=== PATIENT | male | born 1985 | race African-American/Black ===

== ENCOUNTER 2016-12-31 16:09 | Inpatient (IN) | payer OTHER ==
--- NOTE | 2016-12-31 22:17 | HP ---
CIWA Score - CIWA Score Nausea/Vomitin Muscle Tremors: 3 Anxiety: 3 Agitation: 3 Paroxysmal Sweats: 2 Orientation: 0-Oriented Tacttile Disturbances: 2-Mild Itch/Numbness/Burn Auditory Disturbances: 2-Mild Harshness/Frighten Visual Disturbances: 2-Mild Sensitivity Headache: 2-Mild CIWA-Ar Total Score: 22 Admission ROS BHS - HPI Chief Complaint: i need help to stop drinking alcohol Allergies/Adverse Reactions: Allergies Allergy/AdvReac Type Severity Reaction Status Date / Time No Known Allergies Allergy Verified 12/31/16 22:14 History of Present Illness: this 31 years old male with alcohol dependence,withdrawal symptom,last detox [facility] syncope alcohol related no significant period of sobriety Exam Limitations: No Limitations - Ebola screening Have you traveled outside of the country in the last 21 days: No Have you had contact with anyone from an Ebola affected area: No Do you have a fever: No - Review of Systems Constitutional: Loss of Appetite, Malaise, Night Sweats, Changes in sleep EENT: reports: Nose Congestion Respiratory: reports: No Symptoms reported Cardiac: reports: No Symptoms Reported GI: reports: Nausea, Vomiting, Abdominal cramping : reports: No Symptoms Reported Musculoskeletal: reports: Back Pain, Muscle Pain Integumentary: reports: Dryness Neuro: reports: Headache, Tremors Endocrine: reports: No Symptoms Reported Hematology: reports: No Symptoms Reported Psychiatric: reports: No Sypmtoms Reported Patient History - Patient Medical History Hx Anemia: No Hx Asthma: No Hx Chronic Obstructive Pulmonary Disease (COPD): No Hx Cancer: No Hx Cardiac Disorders: No Hx Congestive Heart Failure: No Hx Hypertension: No Hx Hypercholesterolemia: No Hx Pacemaker: No HX Cerebrovascular Accident: No Hx Seizures: No Hx Dementia: No Hx Diabetes: No Hx Gastrointestinal Disorders: No Hx Liver Disease: No Hx Genitourinary Disorders: No Hx Renal Disease (ESRD): No Hx Thyroid Disease: No Hx Human Immunodeficiency Virus (HIV): No (2016 last negative) Hx Hepatitis C: No Hx Depression: No Hx Suicide Attempt: No Hx Bipolar Disorder: No Hx Schizophrenia: No Other Medical History: no suicidal,no homicidal - Patient Surgical History Past Surgical History: No - PPD History Previous Implant?: Yes Documented Results: Negative w/o proof Implanted On Prior [facility] Admission?: No PPD to be Administered?: Yes - Smoking Cessation Smoking history: Never smoked Have you smoked in the past 12 months: No Cigars Per Day: 0 Hx Chewing Tobacco Use: No - Substance & Tx. History Hx Alcohol Use: Yes Hx Substance Use Treatment: Yes ([facility] in 11/02) - Substances Abused Alcohol Route: Oral Frequency: Daily Amount used: 3pints of vodka/2 of 40 ozs of beer Age of first use: 20 Date of Last Use: 12/31/16 Family Disease History - Family Disease History Family Disease History: Other: Father (alcohol) Admission Physical Exam [facility] - Physical General Appearance: Yes: Moderate Distress, Alcohol on Breath, Tremorous, Irritable, Sweating, Anxious HEENTM: Yes: Normal ENT Inspection, DEBBIE, Pharynx Normal Respiratory: Yes: Lungs Clear Neck: Yes: Within Normal Limits Breast: Yes: Within Normal Limits Cardiology: Yes: Within Normal Limits, Regular Rhythm, Regular Rate, S1, S2 Abdominal: Yes: Normal Bowel Sounds, Non Tender, Flat, Soft Genitourinary: Yes: Within Normal Limits Back: Yes: Muscle Spasm Musculoskeletal: Yes: Back pain, Muscle Pain Extremities: Yes: Tremors 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: 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
[2016-12-31 22:28] VITALS: BMI 28.6
[2016-12-31] MEDS ORDERED: IBUPROFEN 400 MG TABLET (FP) PO PRN (22:34)
[2016-12-31] MEDS ORDERED: P-EPHED 60MG/TRIPROLIDI 2.5MG TABLET PO PRN (22:34)
[2016-12-31] MEDS ORDERED: MAG HYDROX/AL HYDROX/SIMETH 30 ML UNIT-DOSE CUP PO PRN (22:34)
[2016-12-31] MEDS ORDERED: chlordiazePOXIDE HCL 25 MG CAPSULE PO ONE (22:34)
[2016-12-31] MEDS ORDERED: MAGNESIUM CITRATE 300 ML BOTTLE PO PRN (22:34)
[2016-12-31] MEDS ORDERED: MENTHOL/PHENOL 1 EACH UD MM PRN (22:34)
[2016-12-31] MEDS ORDERED: LOPERAMIDE HCL 2 MG CAPSULE PO PRN (22:34)
[2016-12-31] MEDS ORDERED: hydrOXYzine PAMOATE 50 MG CAPSULE (FP) PO PRN (22:34)
[2016-12-31] MEDS ORDERED: MAGNESIUM HYDROX 2400MG/30ML ORAL SUSPENSION 30 ML CUP PO PRN (22:34)
[2016-12-31] MEDS ORDERED: guaiFENesin/D-METHORPHAN HB 10 ML UNIT-DOSE CUPS PO PRN (22:34)
[2017-01-01] MEDS: chlordiazePOXIDE HCL 25 MG CAPSULE PO PRN ×2 (01:27→07:48)
[2017-01-01] MEDS: chlordiazePOXIDE HCL 25 MG CAPSULE PO SCH ×5 (01:30→22:10)
[2017-01-01 03:08] LABS: URINE APPEARANCE CLEAR; URINE BILIRUBIN NEGATIVE (NEGATIVE); URINE COLOR STRAW; URINE GLUCOSE (UA) NEGATIVE (NEGATIVE); URINE KETONE NEGATIVE (NEGATIVE); URINE LEUK ESTERASE NEGATIVE (NEGATIVE); URINE NITRITE NEGATIVE (NEGATIVE); URINE PROTEIN NEGATIVE (NEGATIVE); URINE UROBILINOGEN NEGATIVE E.U./dl (0.2-1.0)
[2017-01-01 03:11] LABS: URINE BLOOD 1+ (NEGATIVE)
[2017-01-01 03:20] LABS: URINE BACTERIA RARE /hpf (NONE SEEN); URINE HYALINE CAST 1 /lpf; URINE MUCUS RARE; URINE RBC <1 /hpf (0-3)
[2017-01-01] MEDS: ACETAMINOPHEN 325 MG TABLET (FP) PO PRN (07:58)
[2017-01-01 09:55] LABS: MCH 30.5 pg (25.7-33.7); MCHC 34.1 g/dl (32.0-35.9); MEAN CELL VOLUME 89.4 fl (80-96); MEAN PLT VOLUME 8.2 fl (7.5-11.1); PLATELET COUNT 256 K/MM3 (134-434); RDW 13.3 % (11.9-15.9); WHITE BLOOD COUNT 3.8 K/mm3 (4.0-10.0)
[2017-01-01] MEDS: PRENATAL VITAMINS W/ FOLIC ACID TABLET (FP) PO SCH (10:13)
--- NOTE | 2017-01-01 10:28 | PN ---
S CIWA - CIWA Score Nausea/Vomitin-Mild Nausea/No Vomiting Muscle Tremors: 4-Moderate,w/Arms Extend Anxiety: 4-Mod. Anxious/Guarded Agitation: 3 Paroxysmal Sweats: 3 Orientation: 0-Oriented Tacttile Disturbances: 0-None Auditory Disturbances: 0-None Visual Disturbances: 0-None Headache: 0-None Present CIWA-Ar Total Score: 15 BHS Progress Note (SOAP) Subjective: Anxiety,tremors,sweating,interrupted sleep,restless Objective: 01/01/17 10:27 Vital Signs - 8 hr 01/01/17 01/01/17 01/01/17 03:39 06:19 09:09 Temperature 98.9 F 97.0 F L Pulse Rate 78 70 Respiratory 18 18 18 Rate Blood Pressure 125/84 129/89 Laboratory Tests 12/31/16 01/01/17 23:07 07:00 WBC 3.8 L RBC 4.60 Hgb 14.0 Hct 41.1 MCV 89.4 MCHC 34.1 RDW 13.3 Plt Count 256 MPV 8.2 Urine Color Straw Urine Appearance Clear Urine pH 5.0 Ur Specific [place] 1.016 Urine Protein Negative Urine Glucose (UA) Negative Urine Ketones Negative Urine Blood 1+ H Urine Nitrite Negative Urine Bilirubin Negative Urine Urobilinogen Negative Ur Leukocyte Esterase Negative Urine RBC <1 Urine WBC None Urine Bacteria Rare Hyaline Casts 1 Urine Mucus Rare labs noted Assessment: 01/01/17 10:28 Withdrawal sx. Plan: Continue detox
[2017-01-01 10:48] LABS: ALBUMIN 3.8 g/dl (3.4-5.0); ALK PHOS 41 U/L (45-117); ANION GAP 9 (8-16); BILIRUBIN,TOTAL 0.4 mg/dL (0.2-1.0); CALCIUM 8.7 mg/dL (8.5-10.1); CO2 29 mmol/L (21-32); COCKROFT - GAULT 168.04; CREATININE 0.8 mg/dL (0.7-1.3); GLUCOSE,RANDOM 71 mg/dL (74-106); SGOT/AST 19 U/L (15-37); SGPT/ALT 32 U/L (12-78); TOT PROT 6.8 g/dl (6.4-8.2)
[2017-01-01] MEDS ORDERED: PNEUMOC 13-VAL CONJ-DIP CRM/PF 0.5 ML DISP.SYRIN IM ONE (12:00)
[2017-01-01] MEDS ORDERED: PNEUMOCOCCAL 23 VACCINE 0.5 ML VIAL IM ONE (12:00)
[2017-01-01 12:59] LABS: HIV 1 & 2 AB NEGATIVE; HIV 1 AGp24 NEGATIVE
--- NOTE | 2017-01-01 13:01 | EKG ---
Test Reason : Blood Pressure : / mmHG Vent. Rate : 078 BPM Atrial Rate : 078 BPM P-R Int : 164 ms QRS Dur : 086 ms QT Int : 392 ms P-R-T Axes : 051 030 026 degrees QTc Int : 446 ms NORMAL SINUS RHYTHM NORMAL ECG WHEN COMPARED WITH ECG OF 01-JAN-2017 00:35, NO SIGNIFICANT CHANGE WAS FOUND BASELINE ARTIFACT Confirmed by JANNETH WRAY MD ([id number]) on 01/01/2017 1:01:06 PM Referred By: Confirmed By:JANNETH WRAY MD
[2017-01-01 13:03] LABS: SICKLE CELL SCREEN POSITIVE (NEGATIVE)
--- NOTE | 2017-01-01 13:08 | EKG ---
Test Reason : Blood Pressure : / mmHG Vent. Rate : 073 BPM Atrial Rate : 073 BPM P-R Int : 168 ms QRS Dur : 082 ms QT Int : 392 ms P-R-T Axes : 057 037 026 degrees QTc Int : 431 ms NORMAL SINUS RHYTHM NORMAL ECG NO PREVIOUS ECGS AVAILABLE Confirmed by KAMALA FAJARDO, JANNETH ([id number]) on 01/01/2017 1:07:40 PM Referred By: Confirmed By:JANNETH WRAY MD
[2017-01-01] MEDS: THIAMINE HCL 100 MG TABLET (FP) PO SCH (22:10)
[2017-01-01] MEDS: diphenhydrAMINE HCL 50 MG CAPSULE PO PRN (22:10)
[2017-01-02] MEDS: chlordiazePOXIDE HCL 25 MG CAPSULE PO SCH ×3 (05:08→17:00)
[2017-01-02] MEDS: ACETAMINOPHEN 325 MG TABLET (FP) PO PRN (05:08)
[2017-01-02] MEDS: PRENATAL VITAMINS W/ FOLIC ACID TABLET (FP) PO SCH (10:11)
--- NOTE | 2017-01-02 12:27 | PN ---
[facility] CIWA - CIWA Score Nausea/Vomitin-No Nausea/No Vomiting Muscle Tremors: 3 Anxiety: 4-Mod. Anxious/Guarded Agitation: 3 Paroxysmal Sweats: 3 Orientation: 0-Oriented Tacttile Disturbances: 0-None Auditory Disturbances: 0-None Visual Disturbances: 0-None Headache: 0-None Present CIWA-Ar Total Score: 13 S Progress Note (SOAP) Subjective: Tremors,anxiety,sweating,interrupted sleep,restless.No chest wall pain today,Cx- ray & lt. rib x-ray are negative for fracture or any other pathology. Objective: 01/02/17 12:25 Vital Signs - 8 hr 01/02/17 01/02/17 06:25 09:56 Temperature 98.1 F 98.9 F Pulse Rate 88 98 H Respiratory 18 20 Rate Blood Pressure 133/91 124/83 Laboratory Last Values WBC 3.8 K/mm3 (4.0-10.0) L 01/01/17 07:00 RBC 4.60 M/mm3 (4.00-5.60) 01/01/17 07:00 Hgb 14.0 GM/dL (11.7-16.9) 01/01/17 07:00 Hct 41.1 % (35.4-49) 01/01/17 07:00 MCV 89.4 fl (80-96) 01/01/17 07:00 MCHC 34.1 g/dl (32.0-35.9) 01/01/17 07:00 RDW 13.3 % (11.9-15.9) 01/01/17 07:00 Plt Count 256 K/MM3 (134-434) 01/01/17 07:00 MPV 8.2 fl (7.5-11.1) 01/01/17 07:00 Sickle Cell Screen Positive (NEGATIVE) 01/01/17 07:00 Sodium 144 mmol/L (136-145) 01/01/17 07:00 Potassium 3.7 mmol/L (3.5-5.1) 01/01/17 07:00 Chloride 106 mmol/L (98-107) 01/01/17 07:00 Carbon Dioxide 29 mmol/L (21-32) 01/01/17 07:00 Anion Gap 9 (8-16) 01/01/17 07:00 BUN 12 mg/dL (7-18) 01/01/17 07:00 Creatinine 0.8 mg/dL (0.7-1.3) 01/01/17 07:00 Creat Clearance w eGFR > 60 (>60) 01/01/17 07:00 Random Glucose 71 mg/dL (74-106) L 01/01/17 07:00 Calcium 8.7 mg/dL (8.5-10.1) 01/01/17 07:00 Total Bilirubin 0.4 mg/dL (0.2-1.0) 01/01/17 07:00 AST 19 U/L (15-37) 01/01/17 07:00 ALT 32 U/L (12-78) 01/01/17 07:00 Alkaline Phosphatase 41 U/L (45-117) L 01/01/17 07:00 Total Protein 6.8 g/dl (6.4-8.2) 01/01/17 07:00 Albumin 3.8 g/dl (3.4-5.0) 01/01/17 07:00 Urine Color Straw 12/31/16 23:07 Urine Appearance Clear 12/31/16 23:07 Urine pH 5.0 (5.0-8.0) 12/31/16 23:07 Ur Specific [place] 1.016 (1.001-1.035) 12/31/16 23:07 Urine Protein Negative (NEGATIVE) 12/31/16 23:07 Urine Glucose (UA) Negative (NEGATIVE) 12/31/16 23:07 Urine Ketones Negative (NEGATIVE) 12/31/16 23:07 Urine Blood 1+ (NEGATIVE) H 12/31/16 23:07 Urine Nitrite Negative (NEGATIVE) 12/31/16 23:07 Urine Bilirubin Negative (NEGATIVE) 12/31/16 23:07 Urine Urobilinogen Negative E.U./dl (0.2-1.0) 12/31/16 23:07 Ur Leukocyte Esterase Negative (NEGATIVE) 12/31/16 23:07 Urine RBC <1 /hpf (0-3) 12/31/16 23:07 Urine WBC None /hpf (3-5) 12/31/16 23:07 Urine Bacteria Rare /hpf (NONE SEEN) 12/31/16 23:07 Hyaline Casts 1 /lpf 12/31/16 23:07 Urine Mucus Rare 12/31/16 23:07 RPR Titer Nonreactive (NONREACTIVE) 01/01/17 07:00 HIV 1&2 Antibody Screen Negative 01/01/17 07:00 HIV P24 Antigen Negative 01/01/17 07:00 labs noted Assessment: 01/02/17 12:26 Withdrawal sx. Plan: Continue detox
[2017-01-02] MEDS ORDERED: ONDANSETRON *ODT* 4 MG TABLET SL PRN (17:34)
[2017-01-02] MEDS: diphenhydrAMINE HCL 50 MG CAPSULE PO PRN (22:09)
[2017-01-02] MEDS: chlordiazePOXIDE 5 MG CAPSULE PO SCH (22:09)
[2017-01-02] MEDS: THIAMINE HCL 100 MG TABLET (FP) PO SCH (22:09)
[2017-01-03] MEDS: chlordiazePOXIDE 5 MG CAPSULE PO SCH ×2 (05:41→10:15)
[2017-01-03 06:28] VITALS: TEMP 96.5
[2017-01-03 09:43] VITALS: BP 125/87; PULSE 70
[2017-01-03] MEDS: PRENATAL VITAMINS W/ FOLIC ACID TABLET (FP) PO SCH (10:15)
--- NOTE | 2017-01-03 13:37 | DS ---
[facility] Detox Discharge Summary Admission Date: 12/31/16 Discharge Date: 01/03/17 - History Present History: Alcohol Dependence Additional Comments: ADVISED PATIENT TO FOLLOW-UP WITH [facility] FOR GENERAL MEDICAL ASSESSMENT AND FOR ABNORMAL ADMISSION LAB VALUES AND FOR POSITIVE SICKLE CELL SCREEN RESULT. - Physical Exam Results Vital Signs: Vital Signs Temperature 96.5 F L 01/03/17 09:42 Pulse Rate 70 01/03/17 09:42 Respiratory Rate 18 01/03/17 09:42 Blood Pressure 125/87 01/03/17 09:42 O2 Sat by Pulse Oximetry (%) Pertinent Admission Physical Exam Findings: WITHDRAWAL SYMPTOMS. Laboratory Last Values WBC 3.8 K/mm3 (4.0-10.0) L 01/01/17 07:00 RBC 4.60 M/mm3 (4.00-5.60) 01/01/17 07:00 Hgb 14.0 GM/dL (11.7-16.9) 01/01/17 07:00 Hct 41.1 % (35.4-49) 01/01/17 07:00 MCV 89.4 fl (80-96) 01/01/17 07:00 MCHC 34.1 g/dl (32.0-35.9) 01/01/17 07:00 RDW 13.3 % (11.9-15.9) 01/01/17 07:00 Plt Count 256 K/MM3 (134-434) 01/01/17 07:00 MPV 8.2 fl (7.5-11.1) 01/01/17 07:00 Sickle Cell Screen Positive (NEGATIVE) 01/01/17 07:00 Sodium 144 mmol/L (136-145) 01/01/17 07:00 Potassium 3.7 mmol/L (3.5-5.1) 01/01/17 07:00 Chloride 106 mmol/L (98-107) 01/01/17 07:00 Carbon Dioxide 29 mmol/L (21-32) 01/01/17 07:00 Anion Gap 9 (8-16) 01/01/17 07:00 BUN 12 mg/dL (7-18) 01/01/17 07:00 Creatinine 0.8 mg/dL (0.7-1.3) 01/01/17 07:00 Creat Clearance w eGFR > 60 (>60) 01/01/17 07:00 Random Glucose 71 mg/dL (74-106) L 01/01/17 07:00 Calcium 8.7 mg/dL (8.5-10.1) 01/01/17 07:00 Total Bilirubin 0.4 mg/dL (0.2-1.0) 01/01/17 07:00 AST 19 U/L (15-37) 01/01/17 07:00 ALT 32 U/L (12-78) 01/01/17 07:00 Alkaline Phosphatase 41 U/L (45-117) L 01/01/17 07:00 Total Protein 6.8 g/dl (6.4-8.2) 01/01/17 07:00 Albumin 3.8 g/dl (3.4-5.0) 01/01/17 07:00 Urine Color Straw 12/31/16 23:07 Urine Appearance Clear 12/31/16 23:07 Urine pH 5.0 (5.0-8.0) 12/31/16 23:07 Ur Specific [place] 1.016 (1.001-1.035) 12/31/16 23:07 Urine Protein Negative (NEGATIVE) 12/31/16 23:07 Urine Glucose (UA) Negative (NEGATIVE) 12/31/16 23:07 Urine Ketones Negative (NEGATIVE) 12/31/16 23:07 Urine Blood 1+ (NEGATIVE) H 12/31/16 23:07 Urine Nitrite Negative (NEGATIVE) 12/31/16 23:07 Urine Bilirubin Negative (NEGATIVE) 12/31/16 23:07 Urine Urobilinogen Negative E.U./dl (0.2-1.0) 12/31/16 23:07 Ur Leukocyte Esterase Negative (NEGATIVE) 12/31/16 23:07 Urine RBC <1 /hpf (0-3) 12/31/16 23:07 Urine WBC None /hpf (3-5) 12/31/16 23:07 Urine Bacteria Rare /hpf (NONE SEEN) 12/31/16 23:07 Hyaline Casts 1 /lpf 12/31/16 23:07 Urine Mucus Rare 12/31/16 23:07 RPR Titer Nonreactive (NONREACTIVE) 01/01/17 07:00 Hepatitis C Antibody <0.1 s/co ratio (0.0-0.9) 01/02/17 11:30 HIV 1&2 Antibody Screen Negative 01/01/17 07:00 HIV P24 Antigen Negative 01/01/17 07:00 LABS NOTED. - Treatment Hospital Course: Detoxed Safely - Medication Discharge Medications: Ambulatory Orders NK [No Known Home Medication] 01/01/17 - Diagnosis (1) Alcohol dependence with uncomplicated intoxication Status: Acute (2) Alcohol dependence with uncomplicated withdrawal Status: Acute (3) Syncope Status: Acute Qualifiers: Syncope type: unspecified Qualified Code(s): R55 - Syncope and collapse - AMA Did Patient Leave Against Medical Advice: Yes (PATIENT HAD PERSONAL MATTER TO ATTEND TO, UNABLE TO COMPLETE DETOX REGIMEN.)
[2017-01-03] MEDS ORDERED: chlordiazePOXIDE HCL 10 MG CAPSULE PO SCH (23:00)
== END 2017-01-03 12:15 | disposition left against medical advice (07) | DRG 770 ==
LOC: YASAS 16:09 → Y3N 22:53
PROVIDERS: ADMIT Internal Medicine; ATTEND Internal Medicine
PROC: HZ2ZZZZ Detoxification Services for Substance Abuse Treatment (ICD-10-PCS; principal; 2017-01-03)
DX: F10.230 Alcohol dependence with withdrawal, uncomplicated (principal); F10.220 Alcohol dependence with intoxication, uncomplicated; R55 Syncope and collapse
CPT/HCPCS: 36415; 71020-TC; 71101-TC; 80053; 81003; 81015; 83021; 85027; 85660; 86593; 87389; 90732; 93005; 93010; G0009

== ENCOUNTER 2019-08-07 17:03 | Inpatient (IN) | payer OTHER ==
[2019-08-07 17:39] VITALS: BMI 29.5
--- NOTE | 2019-08-07 20:30 | HP ---
CIWA Score Nausea/Vomitin Muscle Tremors: 1-None Visible, but [place] Anxiety: 4-Mod. Anxious/Guarded Agitation: 4-Moderately Restless Paroxysmal Sweats: 3 Orientation: 1-Uncertain about Date Tacttile Disturbances: 2-Mild Itch/Numbness/Burn Auditory Disturbances: 0-None Visual Disturbances: 0-None Headache: 0-None Present CIWA-Ar Total Score: 21 - Admission Criteria [facility] Guidelines: Admission for Medically Managed Detox: Requires at least one of the followin. CIWA greater than 12 2. Seizures within the past 24 hours 3. Delirium tremens within the past 24 hours 4. Hallucinations within the past 24 hours 5. Acute intervention needed for co occurring medical disorder 6. Acute intervention needed for co occurring psychiatric disorder 7. Severe withdrawal that cannot be handled at a lower level of care (continued vomiting, continued diarrhea, abnormal vital signs) requiring intravenous medication and/or fluids 8. Patient presents the following: CIWA greater than 12, Acute intervention needed for co-occurring med or psych disorder (client is intoxicated, tachycardic with onset on withdrawal sx's. dry mucus membranes r/f dehydration) Admission Criteria Met: Admission criteria met Admitting History and Physical - Smoking History Smoking history: Never smoked Have you smoked in the past 12 months: No Aproximately how many cigarettes per day: 2 - Alcohol/Substance Use Hx Alcohol Use: Yes Admission ROS S - [facility] Chief Complaint: cC/O WITHDRAWAL SX'S. SEEKING ALCOHOL DETOX Allergies/Adverse Reactions: Allergies Allergy/AdvReac Type Severity Reaction Status Date / Time No Known Allergies Allergy Verified 08/07/19 17:24 History of Present Illness: HERE FOR ALCOHOL DETOX. CLIENT IS SELF REFERRED. KNOWN TO THIS PROGRAM. LAST ADMISSION 2016. HE REPORTS HIS LAST DETOX 1 MONTH AGO AT [facility]. HE REPORTS COMPLETION . STATES HE RELAPSED 3 DAYS LATER AFTER DC. HE REPORTS DAILY ALCOHOL INTAKE. LAST INTAKE 3 HOURS AGO. 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 LONGEST CLEAN TIME 11 MONTHS. DENIES ANY THIS PAST YEAR. HOMELESS, UNEMPLOYED, DENIES LEGALS Exam Limitations: Intoxication - Ebola screening Have you traveled outside of the country in the last 21 days: No (N) Have you had contact with anyone from an Ebola affected area: No Do you have a fever: No - Review of Systems Constitutional: Chills, Loss of Appetite, Night Sweats, Changes in sleep EENT: reports: Throat Pain (BURNING) Respiratory: reports: No Symptoms reported Cardiac: reports: No Symptoms Reported GI: reports: Poor Appetite, Poor Fluid Intake, Vomiting : reports: No Symptoms Reported Musculoskeletal: reports: Back Pain Integumentary: reports: [place] Neuro: reports: Tremors Endocrine: reports: No Symptoms Reported Hematology: reports: No Symptoms Reported Psychiatric: reports: Orientated x3, Anxious Other Systems: Reviewed and Negative Patient History - Patient Medical History Hx Anemia: No Hx Asthma: No Hx Chronic Obstructive Pulmonary Disease (COPD): No Hx Cancer: No Hx Cardiac Disorders: No Hx Congestive Heart Failure: No Hx Hypertension: No Hx Hypercholesterolemia: No Hx Pacemaker: No HX Cerebrovascular Accident: No Hx Seizures: No Hx Dementia: No Hx Diabetes: No Hx Gastrointestinal Disorders: No Hx Liver Disease: No Hx Genitourinary Disorders: No Hx Sexually Transmitted Disorders: No Hx Renal Disease (ESRD): No Hx Thyroid Disease: No Hx Human Immunodeficiency Virus (HIV): No Hx Hepatitis C: No Hx Depression: No Hx Suicide Attempt: No Hx Bipolar Disorder: No Hx Schizophrenia: No Other Medical History: DENIES - Patient Surgical History Past Surgical History: No - PPD History Previous Implant?: Yes Documented Results: Negative w/proof Implanted On Prior R Admission?: Yes Date: 01/03/17 Results: 0MM PPD to be Administered?: Yes - Smoking Cessation Smoking history: Current some day smoker Have you smoked in the past 12 months: Yes Aproximately how many cigarettes per day: 2 Cigars Per Day: 0 Hx Chewing Tobacco Use: No Initiated information on smoking cessation: Yes 'Breaking Loose' booklet given: 08/07/19 - Substance & Tx. History Hx Alcohol Use: Yes Hx Substance Use: Yes Substance Use Type: Alcohol Hx Substance Use Treatment: Yes ([facility]) - Substances abused Alcohol Substance route: Oral Frequency: Daily Amount used: 1-2 liter Age of first use: 10 Date of last use: 08/07/19 Admission Physical Exam BHS - Vital Signs Vital Signs: Vital Signs - 24 hr 08/07/19 08/07/19 17:33 18:03 Temperature 99.0 F 99.0 F Pulse Rate 90 90 Respiratory 18 18 Rate Blood Pressure 143/96 143/96 - Physical General Appearance: Yes: Disheveled (unkept), Moderate Distress, Intoxicated, Tremorous, Irritable, Anxious, Other (malodurous) HEENTM: Yes: EOMI, Normocephalic, Normal Voice, DEBBIE, Pharynx Normal, Other ( poor oral hygiene) Respiratory: Yes: Chest Non-Tender, Lungs Clear, Normal Breath Sounds, No Respiratory Distress, No Accessory Muscle Use Neck: Yes: No masses,lesions,Nodules, Supple, Trachea in good position Breast: Yes: Breasts Symetrical Cardiology: Yes: Regular Rhythm, S1, S2, Tachycardia Abdominal: Yes: Non Tender, Soft, Increased Bowel Sounds, Protuberent Genitourinary: Yes: Within Normal Limits (no c/o) Back: Yes: Normal Inspection Musculoskeletal: Yes: full range of Motion, Gait Steady Extremities: Yes: Normal Capillary Refill, Normal Range of Motion, Non-Tender, Tremors 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: Fully Oriented, Alert, Motor Strength 5/5, Depressed Affect Integumentary: Yes: Dry (FLAKY SKIN), Warm Lymphatic: Yes: Within Normal Limits - Diagnostic (1) Alcohol intoxication Current Visit: Yes Status: Acute Qualifiers: Complication of substance-induced condition: with unspecified complication Qualified Code(s): F10.929 - Alcohol use, unspecified with intoxication, unspecified (2) At risk for dehydration due to poor fluid intake Current Visit: Yes Status: Acute (3) Homeless Current Visit: Yes Status: Acute (4) Substance-induced sleep disorder Current Visit: Yes Status: Acute (5) Nicotine dependence Current Visit: Yes Status: Acute Qualifiers: Nicotine product type: cigarettes Substance use status: uncomplicated Qualified Code(s): F17.210 - Nicotine dependence, cigarettes, uncomplicated (6) Alcohol dependence with uncomplicated withdrawal Current Visit: Yes Status: Acute Cleared for Admission S - Detox or Rehab [facility] Level of Care: Medically Managed Detox Regimen/Protocol: Librium Claeared for Rehab Admission: No Breathalyzer - Breathalyzer Breathalyzer: 0.260 Urine Drug Screen - Test Device Lot number: [id number] Expiration date: 04/15/21 - Control Is test valid?: Yes - Results Drug screen NEGATIVE: Yes Inpatient Rehab Admission - Rehab Decision to Admit Inpatient rehab admission?: No
[2019-08-07] MEDS ORDERED: guaiFENesin 200 MG/10 ML 10 ML UNIT-DOSE CUPS PO PRN (20:35)
[2019-08-07] MEDS ORDERED: hydrOXYzine PAMOATE 25 MG CAPSULE (FP) PO PRN (20:35)
[2019-08-07] MEDS ORDERED: NICOTINE POLACRILEX 2 MG GUM BUC PRN (20:35)
[2019-08-07] MEDS ORDERED: MAGNESIUM HYDROX 2400MG/30ML ORAL SUSPENSION 30 ML CUP PO PRN (20:35)
[2019-08-07] MEDS ORDERED: P-EPHED 60MG/TRIPROLIDI 2.5MG TABLET PO PRN (20:35)
[2019-08-07] MEDS ORDERED: DICYCLOMINE HCL 10 MG CAPSULE PO PRN (20:35)
[2019-08-07] MEDS ORDERED: BISMUTH SUBSALICYLATE 524 MG/30 ML UD PO PRN (20:35)
[2019-08-07] MEDS ORDERED: MAG HYDROX/AL HYDROX/SIMETH 30 ML UNIT-DOSE CUP PO PRN (20:35)
[2019-08-07] MEDS ORDERED: MENTHOL/PHENOL 1 EACH UD MM PRN (20:35)
[2019-08-07] MEDS ORDERED: METHOCARBAMOL 500 MG TABLET PO PRN (20:35)
[2019-08-07] MEDS ORDERED: IBUPROFEN 400 MG TABLET (FP) PO PRN (20:35)
[2019-08-07] MEDS ORDERED: MAGNESIUM CITRATE 300 ML BOTTLE PO PRN (20:35)
[2019-08-07] MEDS ORDERED: ONDANSETRON *ODT* 4 MG TABLET SL PRN (20:35)
[2019-08-07] MEDS ORDERED: chlordiazePOXIDE HCL 25 MG CAPSULE PO PRN (20:35)
[2019-08-07] MEDS ORDERED: ACETAMINOPHEN 325 MG TABLET (FP) PO PRN ×2 (20:35)
[2019-08-07] MEDS: chlordiazePOXIDE HCL 25 MG CAPSULE PO SCH (22:37)
[2019-08-07] MEDS: THIAMINE HCL 100 MG TABLET (FP) PO SCH (22:41)
[2019-08-08] MEDS: chlordiazePOXIDE HCL 25 MG CAPSULE PO SCH ×4 (05:53→22:07)
[2019-08-08] MEDS: PRENATAL VITAMINS W/ FOLIC ACID TABLET (FP) PO SCH (10:32)
[2019-08-08] MEDS: NICOTINE 14 MG/24 HOURS TOPICAL PATCH TD SCH (10:33)
--- NOTE | 2019-08-08 10:50 | PN ---
S CIWA - CIWA Score Nausea/Vomitin-No Nausea/No Vomiting Muscle Tremors: 2 Anxiety: 3 Agitation: 0-Normal Activity Paroxysmal Sweats: 3 Orientation: 0-Oriented Tacttile Disturbances: 0-None Auditory Disturbances: 0-None Visual Disturbances: 0-None Headache: 2-Mild CIWA-Ar Total Score: 10 BHS Progress Note (SOAP) Subjective: c/o headache, sweats, shakes, muscle aches, and anxiety. Objective: 08/08/19 10:48 Vital Signs 08/08/19 08/08/19 08/08/19 03:30 06:30 09:27 Temperature 98.6 F 97.2 F L Pulse Rate 79 65 Respiratory 18 18 18 Rate Blood Pressure 137/83 130/90 Labs pending. Assessment: 08/08/19 10:49 AOX3, in no acute respiratory distress. Full ROM, ambulating in the unit. Withdrawal symptoms. Plan: continue detox.
[2019-08-08 10:53] LABS: ALBUMIN 4.1 g/dl (3.4-5.0); BILIRUBIN,TOTAL 0.6 mg/dL (0.2-1); BLOOD UREA NITROGEN 7.4 mg/dL (7-18); CALCIUM 9.6 mg/dL (8.5-10.1); CREATININE 0.8 mg/dL (0.55-1.3); HEMATOCRIT 40.9 % (35.4-49); HEMOGLOBIN 14.2 GM/dL (11.7-16.9); MCH 30.7 pg (25.7-33.7); MCHC 34.7 g/dl (32.0-35.9); MEAN CELL VOLUME 88.3 fl (80-96); MEAN PLT VOLUME 8.7 fl (7.5-11.1); PLATELET COUNT 221 K/MM3 (134-434); POTASSIUM 3.5 mmol/L (3.5-5.1); RBC 4.63 M/mm3 (4.00-5.60); RDW 13.3 % (11.9-15.9); TOT PROT 7.2 g/dl (6.4-8.2); WHITE BLOOD COUNT 6.6 K/mm3 (4.0-10.0)
--- NOTE | 2019-08-08 11:26 | CONSULT ---
[facility] Psychiatric Consult - Data Date of interview: 08/08/19 Admission source: [facility] Identifying data: Readmission to [facility] for this 34 y/o AA male self- referred for detoxification (WILIAM issues : alcohol, nicotine). Interviewed at [address] [place] [address]. 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 Substance Abuse History: Discussed in this session. Details in current [facility] report as follows : Smoking history: Current some day smoker. Have you smoked in the past 12 months: Yes. Aproximately how many cigarettes per day: 2. Cigars Per Day: 0. Hx Chewing Tobacco Use: No. Initiated information on smoking cessation: Yes. 'Breaking Loose' booklet given: 08/07/19. - Substance & Tx. History. Hx Alcohol Use: Yes. Hx Substance Use: Yes. Substance Use Type : Alcohol. Hx Substance Use Treatment: Yes ([facility]). - Substances abused. Alcohol. Substance route: Oral. Frequency: Daily. Amount used: 1- 2 liter. Age of first use: 10. Date of last use: 08/07/19 Medical History: Patient endorses good general health. Psychiatric History: Patient denies history of psychiatric hospitalizations, OPD care or suicide attempts. Physical/Sexual Abuse/Trauma History: No history. Additional Comment: Negative toxicology. Mental Status Exam - Mental Status Exam Alert and Oriented to: Time, Place, Person Cognitive Function: Good Patient Appearance: Unkempt, Disheveled Mood: Withdrawn Affect: Mood Congruent, Constricted Patient Behavior: Fatigued, Appropriate, Cooperative Speech Pattern: Clear, Appropriate Voice Loudness: Normal Thought Process: Intact, Goal Oriented Thought Disorder: Not Present Hallucinations: Denies Suicidal Ideation: Denies Homicidal Ideation: Denies Insight/Judgement: Poor Sleep: Well Appetite: Good Muscle strength/Tone: Normal Gait/Station: Normal Psychiatric Findings - Problem List ([place] 1, 2,3) (1) Alcohol dependence with uncomplicated withdrawal Current Visit: Yes Status: Acute (2) Nicotine dependence Current Visit: Yes Status: Chronic Qualifiers: Nicotine product type: cigarettes Substance use status: uncomplicated Qualified Code(s): F17.210 - Nicotine dependence, cigarettes, uncomplicated - Initial Treatment Plan Initial Treatment Plan: Psychoeducation. Sleep hygiene. Detoxification. Support. AA meetings. MAT services (acamprosate, naltrexone, disulfiram) : discussed with the patient. Motivational counseling. Observation.
[2019-08-08] MEDS ORDERED: FLU VACCINE QUAD 60 MCG/0.5 ML (MDV 19-20) IM ONE (16:12)
--- NOTE | 2019-08-08 17:51 | EKG ---
Test Reason : Blood Pressure : / mmHG Vent. Rate : 072 BPM Atrial Rate : 072 BPM P-R Int : 160 ms QRS Dur : 086 ms QT Int : 400 ms P-R-T Axes : 036 032 014 degrees QTc Int : 438 ms NORMAL SINUS RHYTHM NORMAL ECG WHEN COMPARED WITH ECG OF 01-JAN-2017 09:00, NO SIGNIFICANT CHANGE WAS FOUND Confirmed by MD Jeter Edward ([id number]) on 08/08/2019 5:51:05 PM Referred By: Confirmed By:Callum Jeter MD
[2019-08-08] MEDS: THIAMINE HCL 100 MG TABLET (FP) PO SCH (22:07)
[2019-08-09] MEDS: chlordiazePOXIDE HCL 25 MG CAPSULE PO SCH ×4 (06:08→23:00)
--- NOTE | 2019-08-09 09:41 | PN ---
S CIWA - CIWA Score Nausea/Vomitin-Mild Nausea/No Vomiting Muscle Tremors: 3 Anxiety: 3 Agitation: 2 Paroxysmal Sweats: 2 Orientation: 0-Oriented Tacttile Disturbances: 1-Very Mild Itch/Numbness Auditory Disturbances: 0-None Visual Disturbances: 0-None Headache: 1-Very Mild CIWA-Ar Total Score: 13 BHS Progress Note (SOAP) Subjective: 34 YEARS OLD MALE ADMITTED ON 08/07/19 FOR ALCOHOL WITHDRAWAL SX MANAGEMENT TREATED WITH LIBRIUM DETOX REGIMEN ATE BREAKFAST REQUESTS LAB RESULT CHART REVIEWED ENCOURAGE ATIVAN DETOX REGIMEN RELATED TO AST ELEVATION Objective: 08/09/19 09:42 Vital Signs Temperature 99 F 08/09/19 09:24 Pulse Rate 72 08/09/19 09:24 Respiratory Rate 20 08/09/19 09:24 Blood Pressure 126/92 08/09/19 09:24 O2 Sat by Pulse Oximetry (%) Laboratory Last Values WBC 6.6 K/mm3 (4.0-10.0) 08/08/19 07:40 RBC 4.63 M/mm3 (4.00-5.60) 08/08/19 07:40 Hgb 14.2 GM/dL (11.7-16.9) 08/08/19 07:40 Hct 40.9 % (35.4-49) 08/08/19 07:40 MCV 88.3 fl (80-96) 08/08/19 07:40 MCH 30.7 pg (25.7-33.7) 08/08/19 07:40 MCHC 34.7 g/dl (32.0-35.9) 08/08/19 07:40 RDW 13.3 % (11.9-15.9) 08/08/19 07:40 Plt Count 221 K/MM3 (134-434) 08/08/19 07:40 MPV 8.7 fl (7.5-11.1) 08/08/19 07:40 Sodium 139 mmol/L (136-145) 08/08/19 07:40 Potassium 3.5 mmol/L (3.5-5.1) 08/08/19 07:40 Chloride 102 mmol/L (98-107) 08/08/19 07:40 Carbon Dioxide 30 mmol/L (21-32) 08/08/19 07:40 Anion Gap 7 MMOL/L (8-16) L 08/08/19 07:40 BUN 7.4 mg/dL (7-18) 08/08/19 07:40 Creatinine 0.8 mg/dL (0.55-1.3) 08/08/19 07:40 Est GFR (CKD-EPI)AfAm 136.03 08/08/19 07:40 Est GFR (CKD-EPI)NonAf 117.37 08/08/19 07:40 Random Glucose 93 mg/dL (74-106) 08/08/19 07:40 Calcium 9.6 mg/dL (8.5-10.1) 08/08/19 07:40 Total Bilirubin 0.6 mg/dL (0.2-1) 08/08/19 07:40 AST 100 U/L (15-37) H 08/08/19 07:40 ALT 113 U/L (13-61) H 08/08/19 07:40 Alkaline Phosphatase 86 U/L (45-117) 08/08/19 07:40 Total Protein 7.2 g/dl (6.4-8.2) 08/08/19 07:40 Albumin 4.1 g/dl (3.4-5.0) 08/08/19 07:40 RPR Titer Nonreactive (NONREACTIVE) 08/08/19 07:40 LAB NOTED AST ELEVATION 08/09/19 09:43 Assessment: 08/09/19 09:42 ALCOHOL WITHDRAWAL SX Plan: CONTINUE LIBRIUN DETOX REGIMEN PATIENT AGREES TO CONSIDER ATIVAN DETOX REGIMEN
[2019-08-09] MEDS: PRENATAL VITAMINS W/ FOLIC ACID TABLET (FP) PO SCH (10:26)
[2019-08-09] MEDS: NICOTINE 14 MG/24 HOURS TOPICAL PATCH TD SCH (10:26)
[2019-08-09] MEDS ORDERED: FLU VACCINE QUAD 60 MCG/0.5 ML (MDV 19-20) IM ONE (12:00)
[2019-08-09] MEDS ORDERED: NALOXONE HCL 0.4 MG/ML VIAL ONE (22:03)
--- NOTE | 2019-08-09 22:46 | PN ---
[facility] Progress Note Note: Nurse reports that patient was found on floor feces and vomiting on floor next to patient and nurse initiated a "Rapid Response" and call initiated to 911. Found patient unresponsive w/o breathing or pulse w/ nurse providing chest compression and bag-valve breathing. No pulse.
[2019-08-09] MEDS: THIAMINE HCL 100 MG TABLET (FP) PO SCH (23:00)
[2019-08-10] MEDS ORDERED: chlordiazePOXIDE HCL 10 MG CAPSULE PO PRN
[2019-08-10] MEDS: chlordiazePOXIDE HCL 10 MG CAPSULE PO SCH ×4 (06:25→22:13)
[2019-08-10] MEDS: NICOTINE 14 MG/24 HOURS TOPICAL PATCH TD SCH (10:21)
[2019-08-10] MEDS: PRENATAL VITAMINS W/ FOLIC ACID TABLET (FP) PO SCH (10:21)
--- NOTE | 2019-08-10 14:46 | PN ---
[facility] CIWA - CIWA Score Nausea/Vomitin-Mild Nausea/No Vomiting Muscle Tremors: 2 Anxiety: 2 Agitation: 2 Paroxysmal Sweats: 1-Minimal Palms Moist Orientation: 0-Oriented Tacttile Disturbances: 0-None Auditory Disturbances: 0-None Visual Disturbances: 0-None Headache: 1-Very Mild CIWA-Ar Total Score: 9 S Progress Note (SOAP) Subjective: 34 years old male admitted on 08/07/19 for alcohol withdrawal sx management treated with librium detox regimen feeling better ate breakfast and lunch ambulating on hallway slept through the night less tremor Objective: 08/10/19 14:44 Vital Signs Temperature 97.5 F L 08/10/19 13:12 Pulse Rate 79 08/10/19 13:12 Respiratory Rate 18 08/10/19 13:12 Blood Pressure 107/79 08/10/19 13:12 O2 Sat by Pulse Oximetry (%) Laboratory Last Values WBC 6.6 K/mm3 (4.0-10.0) 08/08/19 07:40 RBC 4.63 M/mm3 (4.00-5.60) 08/08/19 07:40 Hgb 14.2 GM/dL (11.7-16.9) 08/08/19 07:40 Hct 40.9 % (35.4-49) 08/08/19 07:40 MCV 88.3 fl (80-96) 08/08/19 07:40 MCH 30.7 pg (25.7-33.7) 08/08/19 07:40 MCHC 34.7 g/dl (32.0-35.9) 08/08/19 07:40 RDW 13.3 % (11.9-15.9) 08/08/19 07:40 Plt Count 221 K/MM3 (134-434) 08/08/19 07:40 MPV 8.7 fl (7.5-11.1) 08/08/19 07:40 Sodium 139 mmol/L (136-145) 08/08/19 07:40 Potassium 3.5 mmol/L (3.5-5.1) 08/08/19 07:40 Chloride 102 mmol/L (98-107) 08/08/19 07:40 Carbon Dioxide 30 mmol/L (21-32) 08/08/19 07:40 Anion Gap 7 MMOL/L (8-16) L 08/08/19 07:40 BUN 7.4 mg/dL (7-18) 08/08/19 07:40 Creatinine 0.8 mg/dL (0.55-1.3) 08/08/19 07:40 Est GFR (CKD-EPI)AfAm 136.03 08/08/19 07:40 Est GFR (CKD-EPI)NonAf 117.37 08/08/19 07:40 Random Glucose 93 mg/dL (74-106) 08/08/19 07:40 Calcium 9.6 mg/dL (8.5-10.1) 08/08/19 07:40 Total Bilirubin 0.6 mg/dL (0.2-1) 08/08/19 07:40 AST 100 U/L (15-37) H 08/08/19 07:40 ALT 113 U/L (13-61) H 08/08/19 07:40 Alkaline Phosphatase 86 U/L (45-117) 08/08/19 07:40 Total Protein 7.2 g/dl (6.4-8.2) 08/08/19 07:40 Albumin 4.1 g/dl (3.4-5.0) 08/08/19 07:40 RPR Titer Nonreactive (NONREACTIVE) 08/08/19 07:40 HIV 1&2 Antibody Screen Negative 08/10/19 08:00 HIV P24 Antigen Negative 08/10/19 08:00 lab noted Assessment: 08/10/19 14:45 alcohol withdrawal sx Plan: continue librium detox regimen patient will consider ativan detox regimen
[2019-08-10] MEDS: MELATONIN 5 MG TABLETS PO PRN (22:13)
[2019-08-10] MEDS: THIAMINE HCL 100 MG TABLET (FP) PO SCH (22:13)
[2019-08-11] MEDS: chlordiazePOXIDE HCL 10 MG CAPSULE PO SCH ×2 (06:04→18:44)
--- NOTE | 2019-08-11 09:51 | PN ---
S CIWA - CIWA Score Nausea/Vomitin-No Nausea/No Vomiting Muscle Tremors: 2 Anxiety: 2 Agitation: 1-Slight > Activity Paroxysmal Sweats: No Perspiration Orientation: 0-Oriented Tacttile Disturbances: 0-None Auditory Disturbances: 0-None Visual Disturbances: 0-None Headache: 0-None Present CIWA-Ar Total Score: 5 BHS Progress Note (SOAP) Subjective: 34 years old male admitted on 08/07/19 for alcohol withdrawal sx management treated with librium detox regimen ast elevation recommend ativan detox regimen patient prefers librium "I want librium" feeling better less tremore discuss aftercare with staff Objective: 08/11/19 09:50 Vital Signs Temperature 98.0 F 08/11/19 09:27 Pulse Rate 70 08/11/19 09:27 Respiratory Rate 18 08/11/19 09:27 Blood Pressure 92/54 L 08/11/19 09:27 O2 Sat by Pulse Oximetry (%) Laboratory Last Values WBC 6.6 K/mm3 (4.0-10.0) 08/08/19 07:40 RBC 4.63 M/mm3 (4.00-5.60) 08/08/19 07:40 Hgb 14.2 GM/dL (11.7-16.9) 08/08/19 07:40 Hct 40.9 % (35.4-49) 08/08/19 07:40 MCV 88.3 fl (80-96) 08/08/19 07:40 MCH 30.7 pg (25.7-33.7) 08/08/19 07:40 MCHC 34.7 g/dl (32.0-35.9) 08/08/19 07:40 RDW 13.3 % (11.9-15.9) 08/08/19 07:40 Plt Count 221 K/MM3 (134-434) 08/08/19 07:40 MPV 8.7 fl (7.5-11.1) 08/08/19 07:40 Sodium 139 mmol/L (136-145) 08/08/19 07:40 Potassium 3.5 mmol/L (3.5-5.1) 08/08/19 07:40 Chloride 102 mmol/L (98-107) 08/08/19 07:40 Carbon Dioxide 30 mmol/L (21-32) 08/08/19 07:40 Anion Gap 7 MMOL/L (8-16) L 08/08/19 07:40 BUN 7.4 mg/dL (7-18) 08/08/19 07:40 Creatinine 0.8 mg/dL (0.55-1.3) 08/08/19 07:40 Est GFR (CKD-EPI)AfAm 136.03 08/08/19 07:40 Est GFR (CKD-EPI)NonAf 117.37 08/08/19 07:40 Random Glucose 93 mg/dL (74-106) 08/08/19 07:40 Calcium 9.6 mg/dL (8.5-10.1) 08/08/19 07:40 Total Bilirubin 0.6 mg/dL (0.2-1) 08/08/19 07:40 AST 100 U/L (15-37) H 08/08/19 07:40 ALT 113 U/L (13-61) H 08/08/19 07:40 Alkaline Phosphatase 86 U/L (45-117) 08/08/19 07:40 Total Protein 7.2 g/dl (6.4-8.2) 08/08/19 07:40 Albumin 4.1 g/dl (3.4-5.0) 08/08/19 07:40 RPR Titer Nonreactive (NONREACTIVE) 08/08/19 07:40 Hep C Ab Diagnostic <0.1 s/co ratio (0.0-0.9) 08/10/19 08:00 HIV 1&2 Antibody Screen Negative 08/10/19 08:00 HIV P24 Antigen Negative 08/10/19 08:00 lab noted ast repeat pending 08/11/19 09:51 Assessment: 08/11/19 09:51 alcohol withdrawal sx Plan: continue librium detox regimen as per patient preference
[2019-08-11] MEDS: PRENATAL VITAMINS W/ FOLIC ACID TABLET (FP) PO SCH (09:57)
[2019-08-11] MEDS: NICOTINE 14 MG/24 HOURS TOPICAL PATCH TD SCH (09:58)
[2019-08-11 10:14] LABS: EPI CELLS 0.4 /HPF (0-5/HPF); HYALINE CASTS 0 /lpf (0-8); URINE APPEARANCE CLEAR; URINE BACTERIA 2.6 /hpf (NEGATIVE); URINE BILIRUBIN NEGATIVE (NEGATIVE); URINE COLOR YELLOW; URINE GLUCOSE (UA) NEGATIVE (NEGATIVE); URINE KETONE NEGATIVE (NEGATIVE); URINE LEUK ESTERASE TRACE (NEGATIVE); URINE NITRITE NEGATIVE (NEGATIVE); URINE PROTEIN NEGATIVE (NEGATIVE); URINE RBC 1 /hpf (0-4); URINE UROBILINOGEN 0.2 mg/dL (0.2-1.0); URINE WBC 1 /hpf (0-5)
[2019-08-11 11:51] LABS: SGOT/AST 33 U/L (15-37); SGPT/ALT 70 U/L (13-61)
[2019-08-11] MEDS: MELATONIN 5 MG TABLETS PO PRN (22:18)
[2019-08-11] MEDS: THIAMINE HCL 100 MG TABLET (FP) PO SCH (22:18)
[2019-08-12] MEDS ORDERED: chlordiazePOXIDE HCL 10 MG CAPSULE PO ONE (05:00)
[2019-08-12 09:19] VITALS: BP 141/89; PULSE 103; TEMP 97.4
--- NOTE | 2019-08-12 13:25 | DS ---
[facility] Detox Discharge Summary Admission Date: 08/07/19 Discharge Date: 08/12/19 - History Present History: Alcohol Dependence Additional Comments: 34 years old male admitted on 08/07/19 for alcohol withdrawal sx management treated with librium detox regimen patient is alert oriented x 3 cardiac s1s2 regular rate rhythm respiratory clear lung bilaterally on auscultation skin warm and dry - Physical Exam Results Vital Signs: Vital Signs Temperature 97.4 F L 08/12/19 08:55 Pulse Rate 103 H 08/12/19 08:55 Respiratory Rate 20 08/12/19 08:55 Blood Pressure 141/89 08/12/19 08:55 O2 Sat by Pulse Oximetry (%) Pertinent Admission Physical Exam Findings: alcohol withdrawal sx Laboratory Last Values WBC 6.6 K/mm3 (4.0-10.0) 08/08/19 07:40 RBC 4.63 M/mm3 (4.00-5.60) 08/08/19 07:40 Hgb 14.2 GM/dL (11.7-16.9) 08/08/19 07:40 Hct 40.9 % (35.4-49) 08/08/19 07:40 MCV 88.3 fl (80-96) 08/08/19 07:40 MCH 30.7 pg (25.7-33.7) 08/08/19 07:40 MCHC 34.7 g/dl (32.0-35.9) 08/08/19 07:40 RDW 13.3 % (11.9-15.9) 08/08/19 07:40 Plt Count 221 K/MM3 (134-434) 08/08/19 07:40 MPV 8.7 fl (7.5-11.1) 08/08/19 07:40 Sodium 139 mmol/L (136-145) 08/08/19 07:40 Potassium 3.5 mmol/L (3.5-5.1) 08/08/19 07:40 Chloride 102 mmol/L (98-107) 08/08/19 07:40 Carbon Dioxide 30 mmol/L (21-32) 08/08/19 07:40 Anion Gap 7 MMOL/L (8-16) L 08/08/19 07:40 BUN 7.4 mg/dL (7-18) 08/08/19 07:40 Creatinine 0.8 mg/dL (0.55-1.3) 08/08/19 07:40 Est GFR (CKD-EPI)AfAm 136.03 08/08/19 07:40 Est GFR (CKD-EPI)NonAf 117.37 08/08/19 07:40 Random Glucose 93 mg/dL (74-106) 08/08/19 07:40 Calcium 9.6 mg/dL (8.5-10.1) 08/08/19 07:40 Total Bilirubin 0.6 mg/dL (0.2-1) 08/08/19 07:40 AST 33 U/L (15-37) 08/11/19 08:00 ALT 70 U/L (13-61) H 08/11/19 08:00 Alkaline Phosphatase 86 U/L (45-117) 08/08/19 07:40 Total Protein 7.2 g/dl (6.4-8.2) 08/08/19 07:40 Albumin 4.1 g/dl (3.4-5.0) 08/08/19 07:40 Urine Color Yellow 08/11/19 07:45 Urine Appearance Clear 08/11/19 07:45 Urine pH 7.0 (5.0-8.0) D 08/11/19 07:45 Ur Specific [place] 1.008 (1.010-1.035) L 08/11/19 07:45 Urine Protein Negative (NEGATIVE) 08/11/19 07:45 Urine Glucose (UA) Negative (NEGATIVE) 08/11/19 07:45 Urine Ketones Negative (NEGATIVE) 08/11/19 07:45 Urine Blood Negative (NEGATIVE) 08/11/19 07:45 Urine Nitrite Negative (NEGATIVE) 08/11/19 07:45 Urine Bilirubin Negative (NEGATIVE) 08/11/19 07:45 Urine Urobilinogen 0.2 mg/dL (0.2-1.0) 08/11/19 07:45 Ur Leukocyte Esterase Trace (NEGATIVE) 08/11/19 07:45 Urine WBC (Auto) 1 /hpf (0-5) 08/11/19 07:45 Urine RBC (Auto) 1 /hpf (0-4) 08/11/19 07:45 Urine Casts (Auto) 0 /lpf (0-8) 08/11/19 07:45 U Epithel Cells (Auto) 0.4 /HPF (0-5/HPF) 08/11/19 07:45 Urine Bacteria (Auto) 2.6 /hpf (NEGATIVE) 08/11/19 07:45 RPR Titer Nonreactive (NONREACTIVE) 08/08/19 07:40 Hep C Ab Diagnostic <0.1 s/co ratio (0.0-0.9) 08/10/19 08:00 HIV 1&2 Antibody Screen Negative 08/10/19 08:00 HIV P24 Antigen Negative 08/10/19 08:00 lab noted - Treatment Hospital Course: Detox Protocol Followed, Detoxed Safely, Responded well, Discharged Condition Good, Rehab Referral Accepted Patient has Accepted [facility] - Medication Discharge Medications: Ambulatory Orders NK [No Known Home Medication] 01/01/17 - Diagnosis (1) Alcohol dependence with uncomplicated intoxication Status: Acute (2) Nicotine dependence Status: Acute Qualifiers: Nicotine product type: cigarettes Substance use status: in withdrawal Qualified Code(s): F17.213 - Nicotine dependence, cigarettes, with withdrawal - AMA Did Patient Leave Against Medical Advice: No CIWA Score - CIWA Score Nausea/Vomitin-No Nausea/No Vomiting Muscle Tremors: 1-None Visible, but [place] Anxiety: 1-Mildly Anxious Agitation: 1-Slight > Activity Paroxysmal Sweats: No Perspiration Orientation: 0-Oriented Tacttile Disturbances: 0-None Auditory Disturbances: 0-None Visual Disturbances: 0-None Headache: 0-None Present CIWA-Ar Total Score: 3
== END 2019-08-12 09:01 | disposition home or self-care (01) | DRG 775 ==
LOC: YASAS 17:03 → Y3N 21:18
PROVIDERS: ADMIT Allergy & Immunology; ATTEND Allergy & Immunology
PROC: HZ2ZZZZ Detoxification Services for Substance Abuse Treatment (ICD-10-PCS; principal; 2019-08-07)
DX: F10.230 Alcohol dependence with withdrawal, uncomplicated (principal); F10.220 Alcohol dependence with intoxication, uncomplicated; F17.213 Nicotine dependence, cigarettes, with withdrawal; F19.282 Other psychoactive substance dependence with psychoactive substance-induced sleep disorder; Z91.89 Other specified personal risk factors, not elsewhere classified; Z59.0 Homelessness
CPT/HCPCS: 36415; 80053; 81003; 84450; 84460; 85027; 86593; 86803; 87389; 93005; 93010; G0008; Q2036